=== PATIENT | female | born 1960 | race Caucasian/White ===

== ENCOUNTER → 2018-03-14 13:56 | Outpatient (CLI) | payer OTHER, SELFPAY | PROVIDERS: PCP Internal Medicine; Visit Provider Allergy & Immunology | DX: R10.9 Unspecified abdominal pain (principal) | CPT/HCPCS: 36415; 83516; 86003 ==

== ENCOUNTER → 2018-08-07 07:51 | Outpatient (CLI) | payer OTHER, SELFPAY ==
--- NOTE | 2018-08-07 | DI.MG.S_ITS ---
BILATERAL DIGITAL SCREENING MAMMOGRAM 3D/2D WITH CAD: 08/07/2018 CLINICAL: Routine screening. Family history of breast cancer. Comparison is made to exams dated: 06/13/2017 mammogram, 12/19/2015 mammogram - [facility], and 10/20/2011 mammogram - [facility]. The tissue of both breasts is heterogeneously dense. This may lower the sensitivity of mammography. Current study was also evaluated with a Computer Aided Detection (CAD) system. There is 0.5 cm oval low density mass with a circumscribed margin in the left breast at 12 o'clock anterior depth. No other significant masses, calcifications, or other findings are seen in either breast. IMPRESSION: INCOMPLETE: NEEDS ADDITIONAL IMAGING EVALUATION The 0.5 cm oval low density mass in the left breast is indeterminate. Mediolateral and spot compression views as well as additional views with possible ultrasound are recommended. This exam was interpreted at Station ID: [id number]. NOTE: For mammograms, a report in lay terms will be sent to the patient. Approximately 15% of breast malignancies will not be visualized mammographically. In the management of a palpable breast mass, a negative mammogram must not discourage biopsy of a clinically suspicious lesion. Electronically Signed By: José sanchez/lucia:08/07/2018 10:26:57 letter sent: Additional Imaging Needed ACR BI-RADS Category 0: Incomplete [id number]
== END ==
PROVIDERS: PCP Internal Medicine; Visit Provider Internal Medicine
DX: Z12.31 Encounter for screening mammogram for malignant neoplasm of breast (principal); Z80.3 Family history of malignant neoplasm of breast
CPT/HCPCS: 77063; 77067

== ENCOUNTER → 2018-08-18 10:31 | Outpatient (CLI) | payer OTHER, SELFPAY ==
--- NOTE | 2018-08-18 | DI.MG.S_ITS ---
UNILATERAL LEFT DIGITAL DIAGNOSTIC MAMMOGRAM 3D/2D WITH ADDITIONAL VIEWS: 08/18/2018 CLINICAL: Additional evaluation requested from prior study. Family history of breast cancer. Comparison is made to exams dated: 08/07/2018 mammogram, 06/13/2017 mammogram, and 12/19/2015 mammogram - [facility]. The tissue of left breast is heterogeneously dense. This may lower the sensitivity of mammography. Previously identified 0.5 cm oval low density mass with a circumscribed margin in the left breast near 12-1 o'clock anterior depth on comparison screening mammograms persists with additional views. IMPRESSION: INCOMPLETE: NEEDS ADDITIONAL IMAGING EVALUATION Previously identified 0.5 cm oval low density mass with a circumscribed margin in the left breast near 12-1 o'clock anterior depth on comparison screening mammograms persists with additional views. A targeted ultrasound is recommended for further evaluation, and will be performed immediately following this exam. This exam was interpreted at Station ID: [id number]. NOTE: For mammograms, a report in lay terms will be sent to the patient. Approximately 15% of breast malignancies will not be visualized mammographically. In the management of a palpable breast mass, a negative mammogram must not discourage biopsy of a clinically suspicious lesion. Electronically Signed By: Jorge A Palomares M.D. ecl/:08/18/2018 11:02:54 letter sent: Additional Imaging Needed ACR BI-RADS Category 0: Incomplete [id number]
--- NOTE | 2018-08-18 | DI.US.S_ITS ---
LIMITED ULTRASOUND OF LEFT BREAST: 08/18/2018 CLINICAL: Patient returns for additional imaging over a suspected mass in the left breast. Comparison is made to exams dated: 08/18/2018 mammogram, 08/07/2018 mammogram, 06/13/2017 mammogram, and 12/19/2015 mammogram - [facility]. Real-time and Doppler ultrasound of the left breast upper outer quadrant were performed. Maxwell scale images of the real-time examination were reviewed. There is a 0.5 x 0.5 x 0.4 cm oval circumscribed anechoic cyst with increased through transmission and no vascularity on Doppler ultrasound located in the left breast at 1 o'clock 2 cm from the nipple. This appears to correlate with the finding seen on mammography. IMPRESSION: BENIGN 0.5 cm benign simple cyst in the left breast at 1 o'clock 2 cm from the nipple, which appears to correlate with the finding seen on mammography. There is no sonographic evidence of malignancy in the imaged left breast. Return to annual mammogram screening schedule is recommended. The patient is advised to monitor her breasts and to return sooner for re-evaluation should she feel anything grow or change. This exam was interpreted at Station ID: [id number]. Electronically Signed By: Jorge A Palomares M.D. ecl/:08/18/2018 13:50:51 letter sent: Normal Exam Ultrasound BI-RADS: 2 Benign
== END ==
PROVIDERS: PCP Internal Medicine; Visit Provider Internal Medicine
DX: R92.8 Other abnormal and inconclusive findings on diagnostic imaging of breast (principal); Z80.3 Family history of malignant neoplasm of breast; N60.02 Solitary cyst of left breast
CPT/HCPCS: 76642; 77065; G0279

== ENCOUNTER → 2021-08-13 09:53 | Outpatient (CLI) | payer OTHER, SELFPAY | PROVIDERS: PCP Internal Medicine; Referring Provider Internal Medicine; Visit Provider Internal Medicine | DX: Z13.820 Encounter for screening for osteoporosis (principal); M85.851 Other specified disorders of bone density and structure, right thigh; Z78.0 Asymptomatic menopausal state; Z87.891 Personal history of nicotine dependence; Z82.62 Family history of osteoporosis | CPT/HCPCS: 77080 ==

== ENCOUNTER 2021-11-26 20:04 | Emergency (ER) | payer BC, SELFPAY ==
[2021-11-26 20:11] VITALS: BP 204/100; PULSE 75; RESP 16; TEMP 36.8; O2SAT 98; BMI 25.0
--- NOTE | 2021-11-26 21:12 | ED.WOUNDLAC ---
HPI - Wound/Laceration General Chief Complaint: Wound/Laceration Stated Complaint: RT INDEX FINGER CUT ON MANDALIN Time Seen by Provider: 11/26/21 21:12 Source: patient Mode of arrival: Ambulatory History of Present Illness HPI narrative: Otherwise healthy 61-year-old woman who was preparing dinner and cut her right index finger with a mandolin. She is right-hand dominant. She was unable to completely controlled bleeding at home and comes in for further evaluation. There are no other injuries or concerns Related Data Home Medications Medication Instructions Recorded Confirmed temazepam 7.5 mg capsule #0 10/11/16 11/15/19 triamterene 50 1 cap PO QDAY #0 10/11/16 11/15/19 mg-hydrochlorothiazide 25 mg capsule sertraline 50 mg tablet 50 mg PO DAILY 11/15/19 11/15/19 Allergies Allergy/AdvReac Type Severity Reaction Status Date / Time No Known Drug Allergies Allergy Unverified 11/15/19 09:42 Review of Systems Review of Systems Narrative: No fevers, cough, chest pain, palpitations, vomiting or diarrhea. Patient History Family History Father Hypertension Heart disease Diabetes mellitus Mother Ovarian cancer Sister Breast cancer Hypertension Grandfather Stroke Social History marital status: household members: spouse Smoking Status: Never smoker alcohol intake: current substance use type: does not use Smoking Status: Never smoker alcohol intake frequency: 3 or more drinks per day Alcohol type: wine Exam Initial Vital Signs Initial Vital Signs: Vital Signs Temperature 98.2 F 11/26/21 20:11 Pulse Rate 75 11/26/21 20:11 Respiratory Rate 16 11/26/21 20:11 Blood Pressure 204/100 H 11/26/21 20:11 Pulse Oximetry 98 11/26/21 20:11 General: Alert appropriate in no acute distress Respiratory: Able to speak in full sentences, no obvious respiratory distress Skin: No obvious rashes, warm and dry Neurologic: Grossly intact no obvious asymmetries or abnormalities Psych: appropriate insight and affect, cooperative Extremity: 2 cm laceration to the tip of the right index finger does not involve bone, nail or tendon. Procedures Laceration Repair Right index finger: Time of procedure: 21:35 Site: hand Size (cm): 2 Description: flap Depth: simple, single layer Local Anesthetic: bupivacaine 0.5% Amount of anesthesia used (mL): 2 Pre-repair: wound explored Skin layer closed with: nylon Size (cm): 4-0 Number of sutures: 4 Technique: simple, interrupted Course Orders Ordered: Discontinued Medications Bacitracin (Bacitracin Oint 0.9 Gm Pckt) 1 applic TOP NOW ONE Stop: 11/26/21 21:20 Last Admin: 11/26/21 21:22 Dose: 1 applic Documented by: Bupivacaine HCl (Bupivacaine 0.5% (Pf) Vial) 30 ml INJ INTRA-OP ONE Stop: 11/26/21 21:16 Last Admin: 11/26/21 21:19 Dose: 2 ml Documented by: Vital Signs Vital signs: Vital Signs - 8 hr 11/26/21 20:11 Temperature 98.2 F Pulse Rate 75 Respiratory Rate 16 Blood Pressure 204/100 H Pulse Oximetry 98 MDM - Wound/Laceration MDM Narrative Medical decision making narrative: Simple laceration to the tip of the right index finger in a vjhti-bnvo-ebsoobav 61-year-old otherwise healthy woman. Four sutures were used to repair the laceration. She was neurovascularly intact. Wound did not involve nailbed, bone or tendon. Discharge Plan Departure Patient Disposition: Home Clinical Impression: Finger laceration Qualifiers: Encounter type: initial encounter Finger: index finger Damage to nail status: without damage Foreign body presence: without foreign body Laterality: right Qualified Code(s): S61.210A - Laceration without foreign body of right index finger without damage to nail, initial encounter Instructions: DI for Laceration Repair Activity Restrictions/Additional Instructions: Thank you for coming in today And sounds like it was a delightful dinner that was spoiled by the mandolin accident . We put 4 stitches in the tip of your finger to help control bleeding and to make sure that the wound heals nicely. You are currently up-to-date on your tetanus status. With a clean wound like this, we do not usually use antibiotics. If it does seem to be getting infected then you do need to be seen and re-evaluated Using 400 mg of ibuprofen (2 ovwm-qyp-vfwnudp pills) and 1 Tylenol every 6 hours can be very helpful in controlling pain. The sutures should come out on or about December 03. I hope you heal quickly Prescriptions: No Action triamterene-hydrochlorothiazid 50 MG/25 MG capsule 1 cap PO QDAY Qty: 0 0RF temazepam 7.5 MG capsule Qty: 0 0RF sertraline 50 mg tablet 50 mg PO DAILY 0RF Referrals: Polina Dawson PA-C [Non-Staff] - Hebert Raza MD [Primary Care Provider] -
[2021-11-26] MEDS: BUPIVACAINE 0.5% (PF) VIAL 30 ML INJ (21:19)
[2021-11-26] MEDS: BACITRACIN OINT 0.9 GM PCKT 1 APPLIC TOP (21:22)
== END 2021-11-26 21:37 | disposition home or self-care (01) ==
PROVIDERS: Emergency Provider Emergency Medicine; PCP Internal Medicine
DX: S61.210A Laceration without foreign body of right index finger without damage to nail, initial encounter (principal); W26.8XXA Contact with other sharp object(s), not elsewhere classified, initial encounter; Y93.G3 Activity, cooking and baking
CPT/HCPCS: 12001; 99282; 99283

== ENCOUNTER → 2021-11-28 09:16 | Outpatient (CLI) | payer BC, SELFPAY ==
--- NOTE | 2021-11-28 09:17 | DI.RAD.S_ITS ---
PROCEDURE: XR FINGER RT MIN 2V INDICATIONS: index finger laceration TECHNIQUE: AP hand, 2 views of the 2nd finger(s) acquired. COMPARISON: None. FINDINGS: Bones: No fractures or dislocations. No suspicious bony lesions. Soft tissues: Significant soft tissue injury is seen, with bandaging material. No radiopaque foreign bodies are seen. IMPRESSION: Second finger soft tissue injury, without acute bony abnormality identified. If there is strong suspicion for developing osteomyelitis, please consider a dedicated MRI without and with contrast for further evaluation (assuming that there is no contraindication to MRI). Dictated by: Ralph Martinez M.D. on 11/28/2021 at 8:39 Approved by: Ralph Martinez M.D. on 11/28/2021 at 8:40
== END ==
PROVIDERS: PCP Internal Medicine; Referring Provider Physician Assistant; Visit Provider Physician Assistant
DX: S61.210A Laceration without foreign body of right index finger without damage to nail, initial encounter (principal); X58.XXXA Exposure to other specified factors, initial encounter
CPT/HCPCS: 73140

== ENCOUNTER → 2022-11-18 | Outpatient (CLI) | payer BC, SELFPAY ==
--- NOTE | 2022-11-18 09:49 | DI.RAD.S_ITS ---
Bone Density Report Name: TAMICA VALDEZ Age: 62 Sex: Female Ethnicity: White Date of : 1960 Indication: osteopenia; parental hip fracture; secondary osteoporosis; Referring Provider: WILLIAM LOPEZ Study: Bone densitometry was performed. Exam Date: November 18, 2022 Accession number: [id number] Bone Density: Region BMD T-score Z-score Classification AP Spine(L1-L4) 0.977 -0.6 1.0 Normal Femoral Neck (Left) 0.744 -0.9 0.5 Normal Total Hip (Left) 0.869 -0.6 0.5 Normal Femoral Neck (Right) 0.635 -1.9 -0.5 Osteopenia Total Hip (Right) 0.807 -1.1 0.0 Osteopenia Total Hip Mean 0.838 -0.9 0.3 Normal World Health Organization criteria for BMD impression classify patients as: Normal (T-score at or above -1.0), Osteopenia (T-score between -1.0 and -2.5), or Osteoporosis (T-score at or below -2.5). 10-year Fracture Risk(1): Major Osteoporotic Fracture 22% Hip Fracture 2.1% Reported Risk Factors: [place] (), Neck BMD=0.635, BMI=27.0, parental fracture, secondary osteoporosis, alcohol use (1) FRAX(R) Version 3.08. Fracture probability calculated for an untreated patient. Fracture probability may be lower if the patient has received treatment. Previous Exams: -- Region Exam Age BMD T-score BMD Change BMD Change Date g/cm2 vs Baseline vs Previous -- AP Spine (L1-L4) 11/18/2022 62 0.977 -0.6 -0.036 (-3.6%)# -0.036 (-3.6%)# 08/13/2021 61 1.013 -0.3 Total Hip(Left) 11/18/2022 62 0.869 -0.6 0.001 (0.1%)# 0.001 (0.1%)# 08/13/2021 61 0.869 -0.6 Total Hip(Right) 11/18/2022 62 0.807 -1.1 -0.002 (-0.3%)# -0.002 (-0.3%)# 08/13/2021 61 0.809 -1.1 -- *Denotes significance at 95% confidence level, LSC for AP Spine = 0.022 g/cm2, LSC for Total Hip = 0.027 g/cm2 # Denotes dissimilar scan types or analysis methods Impression: The patient has low bone mass, based on the Right Femoral Neck T-score. The patient has an estimated ten-year risk of hip fracture of 2.1% and an estimated ten-year risk of major fracture of 22%, based on the WHO FRAX algorithm. The patient has risk factors, including: parental hip fracture, excessive alcohol use. No significant bone loss was observed. Discussion: BONE DENSITY IS LOW AT ONE OR MORE SKELETAL SITES. THE PATIENT'S BMD AND CLINICAL RISK FACTORS CONTRIBUTE TO THIS PATIENT'S INCREASED RISK OF FRACTURE. This patient's lowest T-score is low at one or more skeletal sites. It meets the World Health Organization's (WHO) criteria for low bone mass (T-score between -1.0 and -2.5). The patient's 10-year risk of a major osteoporotic fracture as calculated by FRAX exceeds the threshold where pharmacological therapy is recommended by the National Osteoporosis Foundation (NOF). However, all treatment decisions require clinical judgment and consideration of individual patient factors, including patient preferences, comorbidities, previous drug use, risk factors not captured in the FRAX model (e.g., frailty, falls, vitamin D deficiency, increased bone turnover, interval significant decline in bone density) and possible under or overestimation of fracture risk by FRAX. The patient should follow a healthful lifestyle (good nutrition with adequate calcium and vitamin D, and appropriate weight-bearing exercise). Follow-Up: Consider a repeat BMD and Vertebral Fracture Assessment (VFA) exam in 2 years or sooner if medically necessary, to reassess this patient's status. Reported by: CHIARA CURRY M.D on 11/18/2022 9:12:00 AM.
== END ==
LOC: RAD 09:48
PROVIDERS: PCP Student in an Organized Health Care Education/Training Program; Referring Provider Registered Nurse; Visit Provider Registered Nurse
DX: D05.12 Intraductal carcinoma in situ of left breast (principal); M85.851 Other specified disorders of bone density and structure, right thigh; M81.8 Other osteoporosis without current pathological fracture; Z78.0 Asymptomatic menopausal state; Z91.89 Other specified personal risk factors, not elsewhere classified; Z76.89 Persons encountering health services in other specified circumstances
CPT/HCPCS: 77080

== ENCOUNTER 2022-12-30 23:28 | Observation (INO) | payer OTHER, SELFPAY ==
[2022-12-30 23:30] VITALS: BP 172/83; PULSE 85; RESP 18; TEMP 37.3; O2SAT 97; BMI 26.1
[2022-12-30 23:32] VITALS: PULSE 79; RESP 18; O2SAT 98
[2022-12-30 23:33] VITALS: BP 172/83; PULSE 76; RESP 18; O2SAT 98
--- NOTE | 2022-12-30 23:35 | DI.CT.S_ITS ---
PROCEDURE: CT ANGIO HEAD AND NECK INDICATIONS: left sided weakness now resolved TECHNIQUE: Pre-contrast 4.5 mm thick sections acquired from the foramen magnum to the vertex. After the administration of intravenous contrast, 1 mm thick sections acquired from the aortic arch through the [place]. Post-contrast 4.5 mm thick sections then re-acquired from the foramen magnum to the vertex. 3-dimensional uqeyufw-qvfhufzul-obvvhbjzlm (MIP) and/or volume rendering reformats were acquired of the central intracranial vasculature and neck separately. For radiation dose reduction, the following was used: automated exposure control, adjustment of mA and/or kV according to patient size. COMPARISON: None. FINDINGS: Image quality: Excellent. BRAIN: CSF spaces: Basal cisterns are patent. An arachnoid cyst is redemonstrated within the left middle cranial fossa. Ventricles are unchanged or in size and shape. Brain: No intracranial hemorrhage, mass, or mass effect. Maxwell-white matter interface appears preserved. No abnormal intracranial enhancement. Skull and face: Calvarium and facial bones appear intact, without suspicious lesions. Orbits appear normal. Sinuses: Sinuses and mastoids are clear. HEAD CT ANGIOGRAPHY: Anterior circulation: Intracranial internal carotid arteries are normal in size and appear patent bilaterally. There is mild atherosclerotic calcification along the cavernous segments of the internal carotid arteries. The paired anterior cerebral arteries appear patent bilaterally. The anterior communicating artery also appears patent. The middle cerebral arteries appear patent bilaterally. No high-grade stenosis, occlusion, or filling defects. No cerebral aneurysms identified. Posterior circulation: Visualized portions of the vertebral arteries demonstrate a left dominant vertebrobasilar system with a diminutive right vertebral artery. The vertebral arteries join to form a patent basilar artery. The posterior cerebral arteries appears patent bilaterally. No high-grade stenosis, occlusion, or filling defects. No cerebral aneurysms identified. NECK CT ANGIOGRAPHY: Carotid system: The great vessels demonstrate a conventional anatomy as they arise from the aortic arch. The origins of the common carotid arteries appear patent. The common carotid arteries demonstrate normal caliber and courses. There is calcified plaque in the right carotid bulb with narrowing of less than 50%. There is also narrowing at the origin of the right external carotid artery by approximately 60-70%. On the left, the carotid bulb appears widely patent. The internal carotid arteries demonstrate normal calibers and courses. Posterior circulation: The origins of the vertebral arteries both appear patent. As noted above, there is a left dominant vertebrobasilar system with a diminutive right vertebral artery. They join to form a patent basilar artery. Soft tissues: Visualized neck soft tissues demonstrate no suspicious abnormalities. Bones: No suspicious bony lesions. Visualized cervical spine demonstrates straightening of the cervical lordosis. There is multilevel degenerative disc disease and facet joint arthropathy. IMPRESSION: 1. No acute intracranial abnormality. 2. No high-grade stenosis or occlusion of the central intracranial arteries. 3. Calcified plaque with narrowing of less than 50% in the right carotid bulb. There is narrowing of 60-70% at the origin of the right external carotid artery. Any quantitative measurements of stenosis were performed using NASCET criteria. Dictated by: José Phillips M.D. on 12/31/2022 at 0:30 Approved by: José Phillips M.D. on 12/31/2022 at 0:36
[2022-12-30 23:50] LABS: Add Manual Diff / Slide Review NO; Basophils Absolute Auto 100 /uL (0-100); Basophils Percent Auto 0.7 % (0-2); Eosinophils Absolute Auto 200 /uL (0-450); Hematocrit 38.7 % (36-46); Hemoglobin 13.1 g/dL (12.0-16.0); Lymphocytes Absolute Auto 2400 /uL (1100-4500); Lymphocytes Percent Auto 30.7 % (25-40); Mean Corpuscular HGB Conc 33.8 % (30-36); Mean Corpuscular Hemoglobin 33.1 PG (26-34); Mean Corpuscular Volume 98.2 fL (80-100); Monocytes Absolute Auto 800 /uL (0-900); Monocytes Percent Auto 10.4 % (3-14); Neutrophils Absolute Auto 4300 /uL (1500-7000); Neutrophils Percent Auto 55.2 % (50-75); Platelet Count 363 X10^3/uL (150-400); Red Blood Cell Count 3.94 X10^6/uL (4.0-5.2); Red Cell Distribution Width 12.9 % (11.6-14.8); White Blood Cell Count 7.8 X10^3/uL (4.5-11.0)
[2022-12-30 23:55] LABS: INR 0.9 (0.9-1.3); Prothrombin Time 10.4 SECONDS (10.1-12.7)
[2022-12-30 23:57] LABS: PTT Partial Thromboplastin Tim 33 SECONDS (26-36)
[2022-12-31] VITALS (20 sets, daily range): BP systolic 150–197; BP diastolic 73–84; PULSE 65–77; RESP 13–27; O2SAT 94–98
[2022-12-31] LABS: Alanine Aminotransferase 25 IU/L (<35); Albumin 4.8 g/dL (3.5-5.0); Albumin Globulin Ratio 1.5 (1.0-2.8); Alkaline Phosphatase 44 U/L (38-126); Aspartate Aminotransferase 35 IU/L (14-36); BUN Creatinine Ratio 19.8 (6-22); Bilirubin Total 0.3 mg/dL (0.2-1.3); Blood Urea Nitrogen 22 mg/dL (7-17); Calcium 9.3 mg/dL (8.4-10.2); Carbon Dioxide 29 mmol/L (22-32); Chloride 93 mmol/L (98-107); Creatine Kinase 79 U/L (30-135); Estimated Glomerular Filt Rate 56 mL/min (>60); Ethanol (ETOH) 222 mg/dL; Globulin 3.1 g/dL (1.7-4.1); Glucose 107 mg/dL (80-110); HEMOLYSIS 16 (0-50); Potassium 3.2 mmol/L (3.4-5.1); Sodium 134 mmol/L (137-145); Total Protein 7.9 g/dL (6.3-8.2)
[2022-12-31 00:11] LABS: Troponin I < 0.012 ng/mL (0.01-0.034)
--- NOTE | 2022-12-31 00:14 | ED_ITS ---
HPI - Neuro Symptoms/Deficit General Chief Complaint: Neuro Symptoms/Deficit Stated Complaint: resolved TIA Time Seen by Provider: 12/30/22 23:32 Source: patient and EMS Mode of arrival: EMS History of Present Illness HPI Narrative: Patient is a 62-year-old female history of breast cancer currently on tamoxifen presenting today with TIA symptoms. She reports talking to a girlfriend on the phone and then at 10:45 p.m. girlfriend could not understand what she was saying her can not understand either she was unable to move the left side of her body including arm and leg and she had mumbled speech. Symptoms completely resolved with EMS by 11:00 p.m.. No chest pain no shortness of breath, no prior history of CVA or TIA. She denies any visual changes On Anticoagulants: No Related Data Home Medications Medication Instructions Recorded Confirmed temazepam 7.5 mg capsule ##0 10/11/16 11/28/21 triamterene 50 1 cap PO QDAY ##0 10/11/16 11/28/21 mg-hydrochlorothiazide 25 mg capsule sertraline 50 mg tablet 50 mg PO DAILY 11/15/19 11/28/21 Allergies Allergy/AdvReac Type Severity Reaction Status Date / Time No Known Drug Allergies Allergy Unverified 11/15/19 09:42 Review of Systems Review of Systems ROS Unobtainable: All systems reviewed & are unremarkable except as noted in HPI and below Hematologic/Lymphatic On Anticoagulants: No Patient History Family History Father Hypertension Heart disease Diabetes mellitus Mother Ovarian cancer Sister Breast cancer Hypertension Grandfather Stroke Social History marital status: household members: spouse Smoking Status: Never smoker alcohol intake: current substance use type: does not use Smoking Status: Never smoker alcohol intake frequency: 3 or more drinks per day Alcohol type: wine Substance Use Type: does not use Exam Initial Vital Signs Initial Vital Signs: Vital Signs Temperature 99.2 F 12/30/22 23:30 Pulse Rate 85 12/30/22 23:30 Respiratory Rate 18 12/30/22 23:30 Blood Pressure 172/83 H 12/30/22 23:30 Pulse Oximetry 97 12/30/22 23:30 Oxygen Delivery Method Room Air 12/30/22 23:30 GENERAL: Alert pleasant well-appearing 62-year-old female HEENT: Head atraumatic,EOMI, pupils reactive, face symmetric, moist mucous membranes CARDIOVASCULAR: Regular rate and rhythm without murmurs, rubs or gallops. RESPIRATORY: Breath sounds equal bilaterally, no wheezes rales or rhonchi. ABDOMEN: Soft, nontender. Normoactive bowel sounds all 4 quadrants. No guarding or rebound. EXTREMITIES: Normal range of motion, no clubbing or edema. Neurovascularly intact NEUROLOGICAL: Alert and oriented x4.Normal gait and speech. Cranial nerves II through XII grossly intact. Good [id number], good [id number], strength equal bilaterally, no dysarthria or aphasia, sensation in tact to soft touch bilaterally, no visual changes, no facial droop SKIN: Warm, dry, no laceration, no petechiae, no rashes or lesions. Scores NIH Stroke Scale Level of Conciousness: Alert, keenly responsive Ask month/age: Answers both questions correctly. Open/close eyes, close hand: Performs both tasks correctly Best gaze horizontal: Normal Visual heller: No visual loss Facial palsy: Normal symetrical movement Left arm drift: No drift for full 10 sec Right arm drift: No drift for full 10 sec Left leg drift: No drift for full 5 sec Right leg drift: No drift for full 5 sec Limb ataxia: Absent Sensory on face/arms/legs: Normal, no sensory loss Best language: No aphasia, normal Dysarthria: Normal Extinction or inattention: No abnormality Total NIH Stroke scale score: 0 Course Orders Ordered: ED Orders 12/30/22 23:30 Complete Blood Count AUTO DIFF Stat Comprehensive Metabolic Panel Stat Ethanol (ETOH) Stat PTT Partial Thromboplastin Guillermo Stat Prothrombin Time INR Stat Troponin & CK Cardiac Panel Stat 12/30/22 23:33 Urine Drug Screen, Rapid Stat EKG-12 Lead Stat 12/30/22 23:35 CT angio head and neck Stat 12/31/22 01:14 Urinalysis and Microscopic Stat 12/31/22 01:28 COVID19 -Nasal RAPID Stat Discontinued Medications Aspirin (Aspirin 81 Mg Chew Tab) 324 mg PO NOW ONE Stop: 12/31/22 01:10 Last Admin: 12/31/22 01:29 Dose: 324 mg Documented By: NISHI Vital Signs Vital signs: Vital Signs - 8 hr 12/30/22 23:30 Temperature 99.2 F Pulse Rate 85 Respiratory Rate 18 Blood Pressure 172/83 H Pulse Oximetry 97 Oxygen Delivery Method Room Air MDM - Neuro Symptoms/Deficit Lab Data 12/30/22 23:30 12/30/22 23:30 Labs: Lab Results 12/30/22 12/30/22 12/30/22 Range/Units 23:30 23:30 23:30 WBC 7.8 (4.5-11.0) X10^3/uL RBC 3.94 L (4.0-5.2) X10^6/uL Hgb 13.1 (12.0-16.0) g/dL Hct 38.7 (36-46) % MCV 98.2 (80-100) fL MCH 33.1 (26-34) PG MCHC 33.8 (30-36) % RDW 12.9 (11.6-14.8) % Plt Count 363 (150-400) X10^3/uL Neut % (Auto) 55.2 (50-75) % Lymph % (Auto) 30.7 (25-40) % [place] % (Auto) 10.4 (3-14) % Eos % (Auto) 3.0 (2-4) % Baso % (Auto) 0.7 (0-2) % Neut # (Auto) 4300 (9687-7040) /uL Lymph # (Auto) 2400 (7333-6812) /uL [place] # (Auto) 800 (0-900) /uL Eos # (Auto) 200 (0-450) /uL Baso # (Auto) 100 (0-100) /uL PT 10.4 (10.1-12.7) SECONDS INR 0.9 (0.9-1.3) APTT 33 (26-36) SECONDS Sodium 134 L (137-145) mmol/L Potassium 3.2 L (3.4-5.1) mmol/L Chloride 93 L (98-107) mmol/L Carbon Dioxide 29 (22-32) mmol/L BUN 22 H (7-17) mg/dL Creatinine 1.11 H (0.52-1.04) mg/dL Estimated GFR 56 L (>60) mL/min BUN/Creatinine Ratio 19.8 (6-22) Glucose 107 (80-110) mg/dL Calcium 9.3 (8.4-10.2) mg/dL Total Bilirubin 0.3 (0.2-1.3) mg/dL AST 35 (14-36) IU/L ALT 25 (<35) IU/L Alkaline Phosphatase 44 (38-126) U/L Total Creatine Kinase 79 (30-135) U/L CK-MB (CK-2) TNP CK-MB (CK-2) Rel Index TNP Troponin I < 0.012 (0.01-0.034) ng/mL Total Protein 7.9 (6.3-8.2) g/dL Albumin 4.8 (3.5-5.0) g/dL Globulin 3.1 (1.7-4.1) g/dL Albumin/Globulin Ratio 1.5 (1.0-2.8) Urine Color Urine Appearance Urine pH (4.5-8.0) Ur Specific [place] (1.000-1.035) Urine Protein (Negative) Urine Glucose (UA) (Negative) g/dL Urine Ketones (NEGATIVE) Urine Occult Blood (Negative) Urine Nitrate (Negative) Urine Bilirubin (NEGATIVE) Urine Urobilinogen (0.2) E.U./dL Ur Leukocyte Esterase (NEGATIVE) Urine RBC (0-5/HPF) Urine WBC (0-5/HPF) Ur Squamous Epith Cells (0-5/HPF) Urine Bacteria (None) Ur Culture Indicated? U Opiates 300ng/mL cut (Negative) Ur Oxycodone Screen (Negative) Urine Methadone Screen (Negative) Ur Barbiturates Screen (Negative) U Tricyclic Antidepress (Negative) Ur Phencyclidine Scrn (Negative) Ur Amphetamines Screen (Negative) U Methamphetamines Scrn (Negative) Ur MDMA Scrn (Ecstasy) (Negative) U Benzodiazepines Scrn (Negative) Urine Cocaine Screen (Negative) U Marijuana (THC) Screen (Negative) Ethyl Alcohol 222 H ( - 10) mg/dL SARS-CoV-2 (PCR) (Negative) 12/31/22 12/31/22 12/31/22 Range/Units 01:14 01:14 01:28 WBC (4.5-11.0) X10^3/uL RBC (4.0-5.2) X10^6/uL Hgb (12.0-16.0) g/dL Hct (36-46) % MCV (80-100) fL MCH (26-34) PG MCHC (30-36) % RDW (11.6-14.8) % Plt Count (150-400) X10^3/uL Neut % (Auto) (50-75) % Lymph % (Auto) (25-40) % [place] % (Auto) (3-14) % Eos % (Auto) (2-4) % Baso % (Auto) (0-2) % Neut # (Auto) (1164-5398) /uL Lymph # (Auto) (9645-5189) /uL [place] # (Auto) (0-900) /uL Eos # (Auto) (0-450) /uL Baso # (Auto) (0-100) /uL PT (10.1-12.7) SECONDS INR (0.9-1.3) APTT (26-36) SECONDS Sodium (137-145) mmol/L Potassium (3.4-5.1) mmol/L Chloride (98-107) mmol/L Carbon Dioxide (22-32) mmol/L BUN (7-17) mg/dL Creatinine (0.52-1.04) mg/dL Estimated GFR (>60) mL/min BUN/Creatinine Ratio (6-22) Glucose (80-110) mg/dL Calcium (8.4-10.2) mg/dL Total Bilirubin (0.2-1.3) mg/dL AST (14-36) IU/L ALT (<35) IU/L Alkaline Phosphatase (38-126) U/L Total Creatine Kinase (30-135) U/L CK-MB (CK-2) CK-MB (CK-2) Rel Index Troponin I (0.01-0.034) ng/mL Total Protein (6.3-8.2) g/dL Albumin (3.5-5.0) g/dL Globulin (1.7-4.1) g/dL Albumin/Globulin Ratio (1.0-2.8) Urine Color Straw Urine Appearance Clear Urine pH 5.5 (4.5-8.0) Ur Specific [place] <=1.005 (1.000-1.035) Urine Protein Negative (Negative) Urine Glucose (UA) Negative (Negative) g/dL Urine Ketones Negative (NEGATIVE) Urine Occult Blood Trace-intact (Negative) Urine Nitrate Negative (Negative) Urine Bilirubin Negative (NEGATIVE) Urine Urobilinogen 0.2 (0.2) E.U./dL Ur Leukocyte Esterase Negative (NEGATIVE) Urine RBC None seen (0-5/HPF) Urine WBC None seen (0-5/HPF) Ur Squamous Epith Cells 0-1 /hpf (0-5/HPF) Urine Bacteria None seen (None) Ur Culture Indicated? Cult not indicated U Opiates 300ng/mL cut Negative (Negative) Ur Oxycodone Screen Negative (Negative) Urine Methadone Screen Negative (Negative) Ur Barbiturates Screen Negative (Negative) U Tricyclic Antidepress Negative (Negative) Ur Phencyclidine Scrn Negative (Negative) Ur Amphetamines Screen Negative (Negative) U Methamphetamines Scrn Negative (Negative) Ur MDMA Scrn (Ecstasy) Negative (Negative) U Benzodiazepines Scrn Positive H (Negative) Urine Cocaine Screen Negative (Negative) U Marijuana (THC) Screen Negative (Negative) Ethyl Alcohol ( - 10) mg/dL SARS-CoV-2 (PCR) Negative (Negative) Imaging Data CTA - brain/neck: Radiologist's Impression: PROCEDURE:? CT ANGIO HEAD AND NECK ? INDICATIONS:? left sided weakness now resolved ? TECHNIQUE:? Pre-contrast 4.5 mm thick sections acquired from the foramen magnum to the vertex.? After the administration of intravenous contrast, 1 mm thick sections acquired from the aortic arch through the [place].? Post-contrast 4.5 mm thick sections then re- acquired from the foramen magnum to the vertex.? 3-dimensional syexzne-lrfmcbpmi-oynuwrxjyl (MIP) and/or volume rendering reformats were acquired of the central intracranial vasculature and neck separately. For radiation dose reduction, the following was used:? automated exposure control, adjustment of mA and/or kV according to patient size.? ? COMPARISON:? None. ? FINDINGS:? Image quality:? Excellent.? ? BRAIN:? CSF spaces:? Basal cisterns are patent.? An arachnoid cyst is redemonstrated within the left middle cranial fossa.? Ventricles are unchanged or in size and shape.? ? Brain:? No intracranial hemorrhage, mass, or mass effect.? Maxwell-white matter interface appears preserved.? No abnormal intracranial enhancement.? ? Skull and face:? Calvarium and facial bones appear intact, without suspicious lesions.? Orbits appear normal.? ? Sinuses:? Sinuses and mastoids are clear.? ? HEAD CT ANGIOGRAPHY:? Anterior circulation:? Intracranial internal carotid arteries are normal in size and appear patent bilaterally.? There is mild atherosclerotic calcification along the cavernous segments of the internal carotid arteries.? The paired anterior cer ebral arteries appear patent bilaterally.? The anterior communicating artery also appears patent. The middle cerebral arteries appear patent bilaterally.? No high-grade stenosis, occlusion, or filling defects.? No cerebral aneurysms identified. ? Posterior circulation:? Visualized portions of the vertebral arteries demonstrate a left dominant vertebrobasilar system with a diminutive right vertebral artery.? The vertebral arteries join to form a patent basilar artery.? The posterior cerebral arteries appears patent bilaterally.? No high-grade stenosis, occlusion, or filling defects.? No cerebral aneurysms identified. ? NECK CT ANGIOGRAPHY:? Carotid system:? The great vessels demonstrate a conventional anatomy as they arise from the aortic arch.? The origins of the common carotid arteries appear patent.? The common carotid arteries demonstrate normal caliber and courses.? There is calcified plaque in the right carotid bulb with narrowing of less than 50%.? There is also narrowing at the origin of the right external carotid artery by approximately 60-70%.? On the left, the carotid bulb appears widely patent.? The internal carotid arteries demonstrate normal calibers and courses.? ? Posterior circulation:? The origins of the vertebral arteries both appear patent.? As noted above, there is a left dominant vertebrobasilar system with a diminutive right vertebral artery.? They join to form a patent basilar artery.? ? Soft tissues:? Visualized neck soft tissues demonstrate no suspicious abnormalities.? ? Bones:? No suspicious bony lesions.? Visualized cervical spine demonstrates st raightening of the cervical lordosis.? There is multilevel degenerative disc disease and facet joint arthropathy.? ? ? IMPRESSION:? ? 1. No acute intracranial abnormality. ? 2. No high-grade stenosis or occlusion of the central intracranial arteries. ? 3. Calcified plaque with narrowing of less than 50% in the right carotid bulb.? There is narrowing of 60-70% at the origin of the right external carotid artery. ? Any quantitative measurements of stenosis were performed using NASCET criteria.? ? ? Dictated by: José Phillips M.D. on 12/31/2022 at 0:30 ? ? ECG Data Interpretation: EKG 1. Sinus rhythm rate 60 MT interval 122 QRS [address] changes or T- wave inversions EKG 2. Sinus rhythm rate 65 similar to previous without ischemic changes MDM Narrative Medical decision making narrative: Patient is 62-year-old female who presents with left facial droop difficulty talking left arm and like weakness lasting for 15-30 minutes. She is found to have alcohol level of 222 however I do know that this is related. CT head CT angio found narrowing 60 70% at origin of right external carotid artery this is unrelated to her symptoms today. Symptoms are certainly concerning for a TIA. She is noted to be mildly hypertensive in the ED as well. Blood work is otherwise overall reassuring. No leukocytosis anemia. She is found to have a sodium 134 potassium of 3.2 a chloride of 93. Creatinine 1.1 baseline creatinine is 0.9 not significantly elevated. Updated patient and on results cementation to stay for evaluation of TI with further imaging. Patient initially quite hesitant to stay feeling better wanting to go home. After speaking with her more both she and her agree that she should stay and have an MRI and further evaluation. Dr. Cotto accepts patient Discharge Plan Departure Patient Disposition: Admitted as Observation Clinical Impression: Brain TIA Admit Date/Time: 12/31/22 01:41 Admit Provider: Rafael Cotto
[2022-12-31] MEDS: ASPIRIN 81 MG CHEW TAB 324 MG PO (01:29)
[2022-12-31 01:34] LABS: UR Morphine/Opiate cutoff 300 Negative (Negative); Ur Creatinine Normal (Normal); Ur Specific Gravity Normal (Normal); Urine Amphetamines Negative (Negative); Urine Barbiturates Negative (Negative); Urine Benzodiazepines Positive (Negative); Urine Cocaine Negative (Negative); Urine MDMA Negative (Negative); Urine Methadone Negative (Negative); Urine Methamphetamines Negative (Negative); Urine Oxycodone Negative (Negative); Urine Phencyclidine Negative (Negative); Urine Tetrahydrocannabinol Negative (Negative); Urine Tricyclic Antidepressant Negative (Negative); Urine pH Normal (Normal)
[2022-12-31 01:41] LABS: Appearance Urine UA CLEAR; Bilirubin Urine UA NEGATIVE (NEGATIVE); Glucose Urine UA NEGATIVE (Negative); Ketones Urine UA NEGATIVE (NEGATIVE); Leukocyte Esterase Urine UA NEGATIVE (NEGATIVE); Nitrite Urine UA NEGATIVE (Negative); Occult Blood Urine UA TRACE-INTACT (Negative); Protein Urine UA NEGATIVE (Negative); Specific Gravity Urine UA <=1.005 (1.000-1.035); Urobilinogen Urine UA 0.2 E.U./dL (0.2)
[2022-12-31 01:49] LABS: Color Urine UA Straw; pH Urine UA 5.5 (4.5-8.0)
[2022-12-31 01:50] LABS: RBC Urine None Seen (0-5/HPF); Squamous Epithelial Cell Urine 0-1 /HPF (0-5/HPF); WBC Urine None Seen (0-5/HPF)
[2022-12-31 01:51] LABS: Bacteria Urine None Seen; Culture Indicated Urine Cult Not Indicated
[2022-12-31 01:56] LABS: COVID19 -Nasal RAPID Negative (Negative)
--- NOTE | 2022-12-31 05:47 | P.HP_ITS ---
History of Present Illness History of Present Illness Date Patient Seen: 12/31/22 Time Patient Seen: 05:30 Chief complaint: resolved TIA Narrative: Ms. Khan is a 62W with PMH breast cancer on tamoxifen, HTN who presents with left sided weakness. She was apparently in her normal state of health and was talking on the phone with a friend at 10:45pm when she had garbled speech. She had left sided weakness on her arm and leg. She had no vision changes, no issues with swallowing. EMS noted she had left arm weakness and inability to squeeze with her left hand. Her symptoms resolved by the time she was in the ED. She tells me she feels completely back to her normal. In the ED workup was done, vitals notable for afebrile, heart rate in 80s, blood pressure 170s/80s, sats 97% on room air. Labs reviewed by me and notable for WBC 7.8, hgb 13.1, plts 363. Na 134, k 3.2. creatinine 1.11. Trop negative. EtOH 222. UA negative for bacteria or WBCs. UDS showed benzos. NIH 0. EKG reviewed by me and notable for sinus rhythm with no acute ischemic changes. CT head showed no acute process. CT angio head/neck reviewed by me showed 50% stenosis of right carotid bulb, 60-70% stenosis of the right external carotid artery. She was ordered for aspirin and admitted for further treatment. [facility] Family History Father Hypertension Heart disease Diabetes mellitus Mother Ovarian cancer Sister Breast cancer Hypertension Grandfather Stroke Social History marital status: household members: spouse Smoking Status: Never smoker alcohol intake: current substance use type: does not use Meds Home Medications and Allergies Home Medications Medication Instructions Recorded Confirmed Type temazepam 7.5 mg capsule ##0 10/11/16 11/28/21 History triamterene 50 1 cap PO QDAY ##0 10/11/16 11/28/21 History mg-hydrochlorothiazide 25 mg capsule sertraline 50 mg tablet 50 mg PO DAILY 11/15/19 11/28/21 History Allergies Allergy/AdvReac Type Severity Reaction Status Date / Time No Known Drug Allergies Allergy Unverified 11/15/19 09:42 Review of Systems Review of Systems Narrative: 14 systems reviewed and negative aside from what is noted in HPI Exam Vital Signs (past 8 hours): - 12/30/22 23:30 12/30/22 23:32 12/30/22 23:33 Temperature 99.2 F Pulse Rate 85 79 Respiratory Rate 18 18 Blood Pressure 172/83 H 172/83 H Pulse Oximetry 97 98 Oxygen Delivery Method Room Air 12/30/22 23:33 12/31/22 00:01 12/31/22 00:30 Temperature Pulse Rate 76 75 69 Respiratory Rate 18 21 19 Blood Pressure Pulse Oximetry 98 96 95 Oxygen Delivery Method 12/31/22 00:51 12/31/22 00:51 12/31/22 01:00 Temperature Pulse Rate 70 75 Respiratory Rate 18 17 Blood Pressure 150/73 H Pulse Oximetry 96 97 Oxygen Delivery Method 12/31/22 03:27 12/31/22 03:30 12/31/22 04:00 Temperature Pulse Rate 68 67 68 Respiratory Rate 18 19 14 Blood Pressure Pulse Oximetry 94 94 95 Oxygen Delivery Method 12/31/22 04:30 12/31/22 05:00 12/31/22 05:30 Temperature Pulse Rate 66 65 65 Respiratory Rate 13 15 16 Blood Pressure Pulse Oximetry 95 94 95 Oxygen Delivery Method Oxygen Delivery Method Room Air Narrative Exam Narrative: GEN: no acute distress HEENT: PERRL, moist mucous membranes NECK: trachea midline, no jvd PULM: clear bilaterally, no wheezes, rhonchi, rales CV: regular rate and rhythm, no murmurs ABD: soft, nontender, nondistended, no organomegaly EXT: warm and well perfused with no edema NEURO: awake, alert, oriented, no focal deficits noted, normal upper and lower extremity strength Objective Labs 12/30/22 23:30 12/30/22 23:30 Labs: Laboratory Results - last 24 hr 12/30/22 12/30/22 12/30/22 23:30 23:30 23:30 WBC 7.8 RBC 3.94 L Hgb 13.1 Hct 38.7 MCV 98.2 MCH 33.1 MCHC 33.8 RDW 12.9 Plt Count 363 Neut % (Auto) 55.2 Lymph % (Auto) 30.7 [place] % (Auto) 10.4 Eos % (Auto) 3.0 Baso % (Auto) 0.7 Neut # (Auto) 4300 Lymph # (Auto) 2400 [place] # (Auto) 800 Eos # (Auto) 200 Baso # (Auto) 100 PT 10.4 INR 0.9 APTT 33 Sodium 134 L Potassium 3.2 L Chloride 93 L Carbon Dioxide 29 BUN 22 H Creatinine 1.11 H Estimated GFR 56 L BUN/Creatinine Ratio 19.8 Glucose 107 Calcium 9.3 Total Bilirubin 0.3 AST 35 ALT 25 Alkaline Phosphatase 44 Total Creatine Kinase 79 CK-MB (CK-2) TNP CK-MB (CK-2) Rel Index TNP Troponin I < 0.012 Total Protein 7.9 Albumin 4.8 Globulin 3.1 Albumin/Globulin Ratio 1.5 Urine Color Urine Appearance Urine pH Ur Specific [place] Urine Protein Urine Glucose (UA) Urine Ketones Urine Occult Blood Urine Nitrate Urine Bilirubin Urine Urobilinogen Ur Leukocyte Esterase Urine RBC Urine WBC Ur Squamous Epith Cells Urine Bacteria Ur Culture Indicated? U Opiates 300ng/mL cut Ur Oxycodone Screen Urine Methadone Screen Ur Barbiturates Screen U Tricyclic Antidepress Ur Phencyclidine Scrn Ur Amphetamines Screen U Methamphetamines Scrn Ur MDMA Scrn (Ecstasy) U Benzodiazepines Scrn Urine Cocaine Screen U Marijuana (THC) Screen Ethyl Alcohol 222 H SARS-CoV-2 (PCR) 12/31/22 12/31/22 12/31/22 01:14 01:14 01:28 WBC RBC Hgb Hct MCV MCH MCHC RDW Plt Count Neut % (Auto) Lymph % (Auto) [place] % (Auto) Eos % (Auto) Baso % (Auto) Neut # (Auto) Lymph # (Auto) [place] # (Auto) Eos # (Auto) Baso # (Auto) PT INR APTT Sodium Potassium Chloride Carbon Dioxide BUN Creatinine Estimated GFR BUN/Creatinine Ratio Glucose Calcium Total Bilirubin AST ALT Alkaline Phosphatase Total Creatine Kinase CK-MB (CK-2) CK-MB (CK-2) Rel Index Troponin I Total Protein Albumin Globulin Albumin/Globulin Ratio Urine Color Straw Urine Appearance Clear Urine pH 5.5 Ur Specific [place] <=1.005 Urine Protein Negative Urine Glucose (UA) Negative Urine Ketones Negative Urine Occult Blood Trace-intact Urine Nitrate Negative Urine Bilirubin Negative Urine Urobilinogen 0.2 Ur Leukocyte Esterase Negative Urine RBC None seen Urine WBC None seen Ur Squamous Epith Cells 0-1 /hpf Urine Bacteria None seen Ur Culture Indicated? Cult not indicated U Opiates 300ng/mL cut Negative Ur Oxycodone Screen Negative Urine Methadone Screen Negative Ur Barbiturates Screen Negative U Tricyclic Antidepress Negative Ur Phencyclidine Scrn Negative Ur Amphetamines Screen Negative U Methamphetamines Scrn Negative Ur MDMA Scrn (Ecstasy) Negative U Benzodiazepines Scrn Positive H Urine Cocaine Screen Negative U Marijuana (THC) Screen Negative Ethyl Alcohol SARS-CoV-2 (PCR) Negative Assessment & Plan Assessment & Plan narrative: 1. TIA vs CVA -presented with left sided neurologic symptoms that have completely resolved -initial NIH 0 -CT head shows no acute process -CTA head/neck shows right carotid stenosis that appears moderate, suspect this may be etiology of symptoms -started on aspirin, will continue aspirin and high dose statin -ordered MRI head, ECHO for further evaluation -check a1c, lipids -ordered PT/OT -check NIH q6 -keep on telemetry -would recommend vascular or cardiology follow up urgently as outpatient to evaluate if needed to have intervention on carotid stenosis 2. Alcohol use -no symptoms currently -monitor for withdrawal, low suspicion for severe withdrawal 3. Hypertension -hold anti-hypertensives 4. History of breast cancer -continue home medications once reconciled I have discussed plan and obtained history with patient. I have discussed plan of care with ED physician and bedside nures. I have reviewed labs, ekg, ct imaging.
--- NOTE | 2022-12-31 07:26 | DI.MRI.S_ITS ---
PROCEDURE: MR HEAD/BRAIN WO CON INDICATIONS: TIA TECHNIQUE: Non-contrast axial T1 spin echo, axial T2 fast spin echo, sagittal and axial FLAIR, coronal T2 fast spin echo, axial gradient echo, axial diffusion and ADC through the brain. COMPARISON: [facility], CT, CT ANGIO HEAD AND NECK, 12/30/2022, 23:50. FINDINGS: Image quality: Excellent. CSF spaces: Ventricles appear symmetric in size and shape. Basal cisterns are patent. No extra-axial fluid collections. Brain: No intracranial bleeds or mass effects. There is cerebral volume loss for age. There are mild periventricular and deep white matter chronic small vessel ischemic changes. Brainstem appears normal. Diffusion-weighted images show no acute ischemic insults. No chronic ischemic insults. Normal intravascular flow voids are present. Incidental note is made of the presence of a anterior left temporal region arachnoid cyst. Skull and face: Calvarial bone marrow is normal in signal. Orbits are normal. Sinuses: Sinuses and mastoids are clear. IMPRESSION: 1. Age-related volume loss and mild small vessel ischemic change. 2. No evidence acute intracranial abnormality. Dictated by: Tony Teixeira M.D. on 12/31/2022 at 10:44 Approved by: Tony Teixeira M.D. on 12/31/2022 at 10:47
[2022-12-31] MEDS: POTASSIUM CHLORIDE 20 MEQ TAB 40 MEQ PO (08:02)
--- NOTE | 2022-12-31 08:06 | DI.ECHO.S_ITS ---
[place] [facility] +---------+ : : [address] : : : : [id number] : : : : Phone: [phone]+ Echocardiogram Report + + :Name: TAMICA VALDEZ Study Date: 12/31/2022 Height: 65 in : :[facility] ReadingLocation: Weight: 160 lb : : Gender: Female BSA: 1.8 m2 : :: 1960 Age: 62 yrs BP: 197/84 mmHg: :Reason For Study: TRANSIENT ISCHEMIC ATTACK HR: 70 : :Ordering Physician: SHAHRZAD, : :ENMANUEL Performed By: WILLIAM CASTRO : :Referring: ENMANUEL MARKHAM : + + Interpretation Summary The ejection fraction is estimated to be 60-65%. Diastolic parameters suggest probable normal left ventricular diastolic function and normal filling pressures. The right ventricle is normal in size and function. Injection of contrast documented no interatrial shunt. No significant valvular abnormalities. Unable to estimate PASP. Procedure: A two-dimensional transthoracic echocardiogram with color flow and Doppler was performed. The study quality was technically adequate. There is no prior echocardiogram noted for this patient. A saline contrast injection was performed to assess for cardiac shunting. The patient was in normal sinus rhythm during the exam. Left Ventricle: The left ventricle is normal in size. There is normal left ventricular wall thickness. Left ventricular systolic function is normal. The ejection fraction is estimated to be 60-65%. Diastolic parameters suggest probable normal left ventricular diastolic function and normal filling pressures. Right Ventricle: The right ventricle is normal in size and function. Atria: Both atria are normal in size. Injection of contrast documented no interatrial shunt. Mitral Valve: There is mild mitral annular calcification. The mitral valve is normal. There is trace mitral regurgitation. Aortic Valve: The aortic valve is trileaflet. The aortic valve opens well. There is no aortic valve stenosis. No aortic regurgitation is present. Tricuspid Valve: The tricuspid valve is normal in structure and function. There is trace tricuspid regurgitation. Pulmonary artery pressures cannot be estimated because of the lack of a measurable TR jet velocity. Pulmonic Valve: The pulmonic valve leaflets are thin and pliable; valve motion is normal. There is no pulmonic valvular regurgitation. Great Vessels: The aortic root is normal size. The ascending aorta could not be visualized. The IVC is of normal diameter and collapses greater than 50% with a sniff. This suggests a low right atrial pressure of 3 mm Hg. Pericardium/ Pleura There is no pericardial effusion. There is no pleural effusion. MMode/2D Measurements & Calculations LVIDd: 4.0 cm LVOT diam: 1.9 cm LVIDs: 2.7 cm Ao root diam: 3.1 cm FS: 31.5 % IVSd: 0.81 cm LVPWd: 0.89 cm LV cuellar. diameter/BSA (cm/m^2): 2.2 LV sys. diameter/BSA (cm/m^2): 1.5 LA A2 area: 16.7 cm2 RA long axis: 4.5 cm LA A4 area: 15.8 cm2 RA area: 14.1 cm2 LA length (vol): 4.6 cm RA vol: 37.7 ml LA vol: 48.5 ml RA : 20.9 ml/m2 LA vol index: 27.0 ml/m2 IVC diam: 1.2 cm TAPSE: 2.3 cm Doppler Measurements & Calculations Ao V2 max: 150.5 cm/sec LVOT Max Eliseo: 142.7 cm/sec Ao V2 mean: 113.7 cm/sec LV V1 max P.1 mmHg Ao max P.1 mmHg LV V1 VTI: 34.8 cm Ao mean P.5 mmHg TAHIRA(I,D): 2.7 cm2 Ao V2 VTI: 36.8 cm TAHIRA(V,D): 2.7 cm2 sev ratio: 0.95 TAHIRA indexed to BSA (cm^2/m^2): 1.5 MV E max eliseo: 106.8 cm/sec PA V2 max: 122.5 cm/sec MV A max eliseo: 96.9 cm/sec PA V2 mean: 90.2 cm/sec MV E/A: 1.1 PA mean P.6 mmHg Med Peak E' Eliseo: 9.4 cm/sec PA pr(Accel): 19.1 mmHg E/E' med: 11.3 Lat Peak E' Eliseo: 9.7 cm/sec E/E' lat: 11.0 E/e' average: 11.2 MV dec time: 0.24 sec [facility] 98.7 ml Reading Physician:11:39 AM
[2022-12-31] MEDS: ENOXAPARIN 40 MG/0.4 ML SYRINGE SUBCUT (08:39)
[2022-12-31] MEDS: ASPIRIN EC 81 MG TABLET PO (08:39)
[2022-12-31] MEDS: SERTRALINE 50 MG TABLET PO (08:39)
[2022-12-31] MEDS: LETROZOLE 2.5 MG TABLET PO (09:12)
--- NOTE | 2022-12-31 09:18 | PC.NURSE ---
Received report from EMILY Martinez. Pt resting in bed. AAOx3. AM vitals obtained. Pt hemodynamically stable. no slurred speech. Advised scheduled for MRI at 10AM and ECHO at 11AM. Pt received AM meds per NOV and ate breakfast. Ambulated to with steady gait. at bedside. NAD. Pt on cell phone.
--- NOTE | 2022-12-31 10:27 | OT.IPNOTE ---
Per Dr Moore, TIA has resolved and therefore okay to discharge OT eval orders.
--- NOTE | 2022-12-31 13:56 | PT-IP ANOTE ---
Per Dr. Moore, patient's TIA symptoms were resolved; no PT indicated. Will d/c orders.
--- NOTE | 2022-12-31 18:24 | P.DS_ITS ---
History of Present Illness History of Present Illness Date Patient Seen: 12/31/22 Time Patient Seen: 05:30 Chief complaint: resolved TIA Narrative: Ms. Khan is a 62W with PMH breast cancer on tamoxifen, HTN who presents with left sided weakness. She was apparently in her normal state of health and was talking on the phone with a friend at 10:45pm when she had garbled speech. She had left sided weakness on her arm and leg. She had no vision changes, no issues with swallowing. EMS noted she had left arm weakness and inability to squeeze with her left hand. Her symptoms resolved by the time she was in the ED. She tells me she feels completely back to her normal. In the ED workup was done, vitals notable for afebrile, heart rate in 80s, blood pressure 170s/80s, sats 97% on room air. Labs reviewed by me and notable for WBC 7.8, hgb 13.1, plts 363. Na 134, k 3.2. creatinine 1.11. Trop negative. EtOH 222. UA negative for bacteria or WBCs. UDS showed benzos. NIH 0. EKG reviewed by me and notable for sinus rhythm with no acute ischemic changes. CT head showed no acute process. CT angio head/neck reviewed by me showed 50% stenosis of right carotid bulb, 60-70% stenosis of the right external carotid artery. She was ordered for aspirin and admitted for further treatment. Discharge Providers Provider Date of admission: 12/31/22 01:41 Discharge Date: 12/31/22 Primary care physician: Polina Dawson PA-C Consults: 12/31/22 08:06 Consult to Occupational Therapy Evaluate & Treat Comment: Physician Instructions: Evaluate and treat Consult to Physical Therapy Evaluate & Treat Comment: Physician Instructions: Evaluate and Treat Discharge provider: Paresh Moore DO Summary Hospital Course Discharge Diagnosis: 1. TIA -presented with left sided neurologic symptoms that have completely resolved -initial NIH 0 -CT head shows no acute process -CTA head/neck shows right carotid stenosis at 50% -started on aspirin, will continue aspirin and high dose statin -ordered MRI head which was normal, ECHO normal -LDL 153 -rec outpatient monitoring of ICA stenosis by PCP 2. Alcohol use -no symptoms currently -monitor for withdrawal, low suspicion for severe withdrawal 3. Hypertension -hold anti-hypertensives x24 hours 4. History of breast cancer -continue home medications once reconciled Hospital Course: Admitted for aphasia and left-sided weakness which then resolved prior to getting to the ED. Full stroke workup negative so likely TIA. Placed on aspirin and atorvastatin. CTA showed 50% narrowing of right ICA. Patient will f/u with PCP for monitoring of this. Time Spent with Patient Time spent: Greater than 30 minutes Exam Vital Signs (past 8 hours): - 12/31/22 12:22 Pulse Rate 68 Pulse Oximetry 98 Oxygen Delivery Method Room Air Oxygen Delivery Method Room Air Narrative Exam Narrative: GEN: no acute distress HEENT: PERRL, moist mucous membranes NECK: trachea midline, no jvd PULM: clear bilaterally, no wheezes, rhonchi, rales CV: regular rate and rhythm, no murmurs ABD: soft, nontender, nondistended, no organomegaly EXT: warm and well perfused with no edema NEURO: awake, alert, oriented, no focal deficits noted, normal upper and lower extremity strength Objective Labs 12/30/22 23:30 12/30/22 23:30 Labs: Laboratory Results - last 24 hr 12/30/22 12/30/22 12/30/22 23:30 23:30 23:30 WBC 7.8 RBC 3.94 L Hgb 13.1 Hct 38.7 MCV 98.2 MCH 33.1 MCHC 33.8 RDW 12.9 Plt Count 363 Neut % (Auto) 55.2 Lymph % (Auto) 30.7 [place] % (Auto) 10.4 Eos % (Auto) 3.0 Baso % (Auto) 0.7 Neut # (Auto) 4300 Lymph # (Auto) 2400 [place] # (Auto) 800 Eos # (Auto) 200 Baso # (Auto) 100 PT 10.4 INR 0.9 APTT 33 Sodium 134 L Potassium 3.2 L Chloride 93 L Carbon Dioxide 29 BUN 22 H Creatinine 1.11 H Estimated GFR 56 L BUN/Creatinine Ratio 19.8 Glucose 107 Calcium 9.3 Total Bilirubin 0.3 AST 35 ALT 25 Alkaline Phosphatase 44 Total Creatine Kinase 79 CK-MB (CK-2) TNP CK-MB (CK-2) Rel Index TNP Troponin I < 0.012 Total Protein 7.9 Albumin 4.8 Globulin 3.1 Albumin/Globulin Ratio 1.5 Urine Color Urine Appearance Urine pH Ur Specific [place] Urine Protein Urine Glucose (UA) Urine Ketones Urine Occult Blood Urine Nitrate Urine Bilirubin Urine Urobilinogen Ur Leukocyte Esterase Urine RBC Urine WBC Ur Squamous Epith Cells Urine Bacteria Ur Culture Indicated? U Opiates 300ng/mL cut Ur Oxycodone Screen Urine Methadone Screen Ur Barbiturates Screen U Tricyclic Antidepress Ur Phencyclidine Scrn Ur Amphetamines Screen U Methamphetamines Scrn Ur MDMA Scrn (Ecstasy) U Benzodiazepines Scrn Urine Cocaine Screen U Marijuana (THC) Screen Ethyl Alcohol 222 H SARS-CoV-2 (PCR) 12/31/22 12/31/22 12/31/22 01:14 01:14 01:28 WBC RBC Hgb Hct MCV MCH MCHC RDW Plt Count Neut % (Auto) Lymph % (Auto) [place] % (Auto) Eos % (Auto) Baso % (Auto) Neut # (Auto) Lymph # (Auto) [place] # (Auto) Eos # (Auto) Baso # (Auto) PT INR APTT Sodium Potassium Chloride Carbon Dioxide BUN Creatinine Estimated GFR BUN/Creatinine Ratio Glucose Calcium Total Bilirubin AST ALT Alkaline Phosphatase Total Creatine Kinase CK-MB (CK-2) CK-MB (CK-2) Rel Index Troponin I Total Protein Albumin Globulin Albumin/Globulin Ratio Urine Color Straw Urine Appearance Clear Urine pH 5.5 Ur Specific [place] <=1.005 Urine Protein Negative Urine Glucose (UA) Negative Urine Ketones Negative Urine Occult Blood Trace-intact Urine Nitrate Negative Urine Bilirubin Negative Urine Urobilinogen 0.2 Ur Leukocyte Esterase Negative Urine RBC None seen Urine WBC None seen Ur Squamous Epith Cells 0-1 /hpf Urine Bacteria None seen Ur Culture Indicated? Cult not indicated U Opiates 300ng/mL cut Negative Ur Oxycodone Screen Negative Urine Methadone Screen Negative Ur Barbiturates Screen Negative U Tricyclic Antidepress Negative Ur Phencyclidine Scrn Negative Ur Amphetamines Screen Negative U Methamphetamines Scrn Negative Ur MDMA Scrn (Ecstasy) Negative U Benzodiazepines Scrn Positive H Urine Cocaine Screen Negative U Marijuana (THC) Screen Negative Ethyl Alcohol SARS-CoV-2 (PCR) Negative PFSH Family History Father Hypertension Heart disease Diabetes mellitus Mother Ovarian cancer Sister Breast cancer Hypertension Grandfather Stroke Social History marital status: household members: spouse Smoking Status: Never smoker alcohol intake: current substance use type: does not use Discharge Plan Discharge Plan Patient Disposition: Home Provider Discharge Comment: You were admitted for speech disturbance and left- sided weakness which then resolved. This was suspicious for a TIA or mini- stroke. Thankfully your head scans including CT and MRI showed no evidence of a stroke. You do have a 50% narrowing however of your carotid artery on the right. Due to this we are putting you on daily aspirin and a statin. You may want to have a referral sent by your PCP to see a vascular specialist about monitoring the carotid artery stenosis. Discharge orders & Medications Prescriptions: New aspirin 81 mg Tablet,Delayed Release (Dr/Ec) 81 mg PO DAILY Qty: 30 0RF atorvastatin 40 mg tablet 40 mg PO BEDTIME Qty: 30 0RF Continued triamterene-hydrochlorothiazid 50 MG/25 MG capsule 1 cap PO QDAY Qty: 0 temazepam 7.5 MG capsule Qty: 0 sertraline 50 mg tablet 50 mg PO DAILY Follow up/Referrals: Polina Dawson, PACanC [Primary Care Provider] - 2 Weeks Visit Report/Discharge Packet Stand Alone Forms: Patient Portal/API, Stroke Signs & Symptoms Discharge Data Primary Care Provider: Polina Dawson Attending Provider: Rafael Cotto Date/Time: 12/31/22 01:41
== END 2022-12-31 12:32 | disposition home or self-care (01) ==
LOC: ED 12-31 01:29 → AC 12-31 01:41
PROVIDERS: Admitting Provider Internal Medicine; Emergency Provider Emergency Medicine; PCP Student in an Organized Health Care Education/Training Program; Visit Provider Internal Medicine
DX: R47.01 Aphasia (principal); R53.1 Weakness; R29.700 NIHSS score 0; I10 Essential (primary) hypertension; I65.21 Occlusion and stenosis of right carotid artery; Z85.3 Personal history of malignant neoplasm of breast; Z79.810 Long term (current) use of selective estrogen receptor modulators (SERMs); Z20.822 Contact with and (suspected) exposure to COVID-19
CPT/HCPCS: 36415; 70496; 70498; 70551; 80053; 80305; 80320; 81001; 82550; 82553; 84484; 85025; 85610; 85730; 87635; 93005; 93010; 93306; 96372; 99284; C9803; G0378; J1650; Q9967